=== PATIENT | female | born 1945 | race Asian ===

== ENCOUNTER 2019-03-13 14:42 | Inpatient (IN) | payer BC, MEDICARE ==
[~2019-03-13] VITALS: Ht 144.8 cm; Wt 45.4 kg
[~2019-03-13 14:42] MED LIST: ANTI HTN; CELEBREX; PREMARIN
[2019-03-13 15:14] LABS: BASOPHILS % (AUTO) 1.1 % (0.0-2.0); EOSINOPHILS % (AUTO) 1.8 % (1.0-6.0); HEMATOCRIT 40.4 % (36-46); HEMOGLOBIN 13.4 g/dL (12.0-16.0); LYMPHOCYTES # (AUTO) 1.6 K/uL (1.0-4.8); LYMPHOCYTES % (AUTO) 39.8 % (22.0-44.0); MEAN CORPUSCULAR HGB CONC 33.1 G/dL (31.0-37.0); MEAN CORPUSCULAR VOLUME 97 fL (80-100); MONOCYTES # (AUTO) 0.4 K/uL (0.1-1.0); MONOCYTES % (AUTO) 10.7 % (2.0-9.0); NEUTROPHILS # (AUTO) 1.9 K/uL (1.8-7.7); NEUTROPHILS % (AUTO) 46.6 % (40.0-70.0); PLATELET COUNT (AUTO) 208 K/uL (150-450); RED BLOOD CELL COUNT(AUTO) 4.17 MIL/uL (4.00-5.20); RED CELL DISTRIBUTION WIDTH 12.9 % (11.5-14.5)
[2019-03-13 15:30] LABS: ANION GAP 5 mmol/L (8-16); CARBON DIOXIDE 31 mmol/L (22-29); CHLORIDE 105 mmol/L (98-107); GLUCOSE,RANDOM 96 mg/dL (70-110); POTASSIUM 3.5 mmol/L (3.5-5.1); SODIUM SERUM 141 mmol/L (136-145); UREA NITROGEN, BLOOD 22 mg/dL (7-18)
[2019-03-13 15:32] LABS: GLOMERULAR FILTR. RATE CALC > 60 mL/min (>60)
[2019-03-13 15:38] LABS: ALANINE AMINOTRANSFERASE 32 U/L (12-78); ALKALINE PHOSPHATASE 91 U/L (46-116); ASPARTATE AMINOTRANSFERASE 29 U/L (15-37); BILIRUBIN,TOTAL 0.4 mg/dL (0.1-1.0); TOTAL PROTEIN, SERUM 7.8 g/dL (6.4-8.2)
[2019-03-13] MEDS ORDERED: LISI-660 PO (17:57)
[2019-03-13] MEDS ORDERED: ZOLPIDEM TARTRATE 10 MG TABLET PO PRN (19:45)
[2019-03-13] MEDS ORDERED: LORazepam 1 MG TABLET PO PRN (19:45)
[2019-03-13 20:07] LABS: FREE T4 (FREE THYROXINE) 1.32 ng/dL (0.76-1.46); MAGNESIUM 2.1 mg/dL (1.80-2.40); THYROID STIMULATING HORMONE 1.71 uIU/mL (0.36-3.74)
[2019-03-13 20:13] LABS: APPEARANCE,URINE CLEAR (CLEAR); BILIRUBIN,URINE NEGATIVE (NEGATIVE); GLUCOSE, URINE (UA) NEGATIVE (NEGATIVE); KETONES,URINE 15 mg/dL (NEGATIVE); LEUKOCYTE ESTERASE ,URINE SMALL (NEGATIVE); NITRATE,URINE NEGATIVE (NEGATIVE); OCCULT BLOOD,URINE NEGATIVE (NEGATIVE); PH,URINE 5.5 (5.0-8.0); PROTEIN,URINE NEGATIVE (NEGATIVE); UROBILINOGEN,URINE 0.2 mg/dL (<=1.0)
[2019-03-13 20:26] LABS: BACTERIA,URINE Few /HPF (None Seen); RBC,URINE None Seen /HPF (0-2)
[2019-03-13 20:27] LABS: SQUAMOUS EPITHELIAL CELL,UR Few /LPF (None Seen)
[2019-03-13 22:00] VITALS: BP 149/81
[2019-03-13] MEDS ORDERED: CloNIDine HCL 0.1 MG TABLET PO PRN (23:30)
[2019-03-13] MEDS ORDERED: DOCUSATE SODIUM 100 MG CAPSULE PO PRN (23:30)
[2019-03-13] MEDS ORDERED: MAGNESIUM HYDROXIDE SUSPENSION 30 ML UDCUP PO PRN (23:30)
[2019-03-13] MEDS ORDERED: GuaiFENesin/D-METHORPHAN [SUGAR-FREE] 200-20MG/10 ML SYRUP UDCUP PO PRN (23:30)
[2019-03-13] MEDS ORDERED: NICOTINE 14 MG/24 HOUR PATCH TD PRN (23:30)
[2019-03-13] MEDS ORDERED: ONDANSETRON HCL 4 MG TABLET PO PRN (23:30)
[2019-03-13] MEDS ORDERED: MAG HYDROX/AL HYDROX/SIMETH ES 30 ML SUSPENSION UDCUP PO PRN (23:30)
[2019-03-13] MEDS ORDERED: LOPERAMIDE HCL 2 MG CAPSULE PO PRN (23:30)
[2019-03-13] MEDS ORDERED: IBUPROFEN 400 MG TABLET PO PRN (23:30)
[2019-03-13] MEDS ORDERED: ACETAMINOPHEN 325 MG TABLET PO PRN (23:30)
[2019-03-13] MEDS ORDERED: ALBUTEROL SULFATE HFA 90 MCG/PUFF 8 GM INHALER IH PRN (23:30)
[2019-03-13] MEDS ORDERED: PETROLATUM,WHITE 28 GM JELLY TP PRN (23:30)
[2019-03-14 06:11] VITALS: BP 152/78
[2019-03-14 08:30] VITALS: BP 161/82
[2019-03-14] MEDS: LISINOPRIL 5 MG TABLET PO SCH (08:52)
[2019-03-14 08:55] LABS: CHOL/HDL RATIO 2.1 (3.9-5.7)
[2019-03-14] MEDS: CEPHALEXIN MONOHYDRATE 500 MG CAPSULE PO SCH ×2 (13:35→16:16)
[2019-03-14] MEDS ORDERED: CIPROFLOXACIN HCL 250 MG TABLET PO SCH (17:00)
[2019-03-14 17:21] VITALS: BP 151/86
[2019-03-15 02:16] VITALS: BP 156/83
[2019-03-15 08:15] VITALS: BP 140/74
[2019-03-15] MEDS: CEPHALEXIN MONOHYDRATE 500 MG CAPSULE PO SCH ×3 (09:10→18:12)
[2019-03-15] MEDS: LISINOPRIL 5 MG TABLET PO SCH (09:10)
[2019-03-15 20:58] VITALS: BP 161/76
[2019-03-16 05:54] VITALS: BP 155/76
[2019-03-16] MEDS: LISINOPRIL 5 MG TABLET PO SCH (09:26)
[2019-03-16] MEDS: CEPHALEXIN MONOHYDRATE 500 MG CAPSULE PO SCH ×2 (09:27→12:36)
[2019-03-16 09:28] VITALS: BP 140/74
[2019-03-16] MEDS ORDERED: CEPH500 PO (11:05)
== END 2019-03-16 16:00 | disposition home or self-care (01) | DRG 885 ==
LOC: EMS 14:44 → UNDOADMIN 21:00 → 3EX 21:00
DX: F29 Unspecified psychosis not due to a substance or known physiological condition (principal); E46 Unspecified protein-calorie malnutrition; N39.0 Urinary tract infection, site not specified; D72.819 Decreased white blood cell count, unspecified; E78.5 Hyperlipidemia, unspecified; F03.90 Unspecified dementia, unspecified severity, without behavioral disturbance, psychotic disturbance, mood disturbance, and anxiety; I10 Essential (primary) hypertension; M19.90 Unspecified osteoarthritis, unspecified site; Z68.21 Body mass index [BMI] 21.0-21.9, adult
CPT/HCPCS: 83735; 84439; 84443; 87086; 93005; G0378; G0480